=== PATIENT | male | born 1995 | race Caucasian/White ===

== ENCOUNTER 2024-12-02 19:56 | Inpatient (IN) | payer OTHER ==
[2024-12-02 20:15] VITALS: BMI 26.5
[2024-12-02] MEDS ORDERED: guaiFENesin 600 MG TABLET.ER (FP) PO PRN (20:40)
[2024-12-02] MEDS ORDERED: hydrOXYzine PAMOATE 25 MG CAPSULE (FP) PO PRN (20:40)
[2024-12-02] MEDS ORDERED: LOPERAMIDE HCL 2 MG CAPSULE PO PRN (20:40)
[2024-12-02] MEDS ORDERED: BISMUTH SUBSALICYLATE 524 MG/30 ML PO PRN (20:40)
[2024-12-02] MEDS ORDERED: BENZOCAINE/MENTHOL (CHLORASEPTIC ) LOZENGE MM PRN (20:40)
[2024-12-02] MEDS ORDERED: ACETAMINOPHEN 325 MG TABLET (FP) PO PRN (20:40)
[2024-12-02] MEDS ORDERED: DICYCLOMINE HCL 10 MG CAPSULE PO PRN (20:40)
[2024-12-02] MEDS ORDERED: BENZONATATE 200 MG CAPSULE PO PRN (20:40)
[2024-12-02] MEDS ORDERED: IBUPROFEN 400 MG TABLET (FP) PO PRN (20:40)
[2024-12-02] MEDS ORDERED: IBUPROFEN 600 MG TABLET (FP) PO PRN (20:40)
[2024-12-02] MEDS ORDERED: MAGNESIUM HYDROX 2400MG/30ML ORAL SUSPENSION 30 ML CUP PO PRN (20:40)
[2024-12-02] MEDS ORDERED: METHOCARBAMOL 500 MG TABLET PO PRN (20:40)
[2024-12-02] MEDS ORDERED: POLYETHYLENE GLYCOL (HEALTHYLAX) 3350 17 GM PACKET PO PRN (20:40)
[2024-12-02] MEDS ORDERED: MAG HYDROX/AL HYDROX/SIMETH 30 ML UNIT-DOSE CUP PO PRN (20:40)
[2024-12-02] MEDS ORDERED: NICOTINE POLACRILEX 4 MG GUM BUC PRN (20:40)
[2024-12-02] MEDS ORDERED: ONDANSETRON *ODT* 4 MG TABLET SL PRN (20:40)
[2024-12-02] MEDS ORDERED: NALOXONE (NARCAN) HCL 4 MG/0.1 ML SPRAY NS PRN (20:40)
[2024-12-03] MEDS ORDERED: MELATONIN 5 MG TABLETS ONE (01:01)
[2024-12-03] MEDS: MELATONIN 5 MG TABLETS PO SCH (01:02)
[2024-12-03] MEDS: THIAMINE 100 MG TABLET PO SCH (01:11)
[2024-12-03] MEDS ORDERED: chlordiazePOXIDE HCL 25 MG CAPSULE PO PRN (07:38)
[2024-12-03] MEDS: VENLAFAXINE HCL 150 MG E.R. CAPSULE PO SCH (10:18)
[2024-12-03] MEDS: PRENATAL VITAMINS W/ FOLIC ACID TABLET (FP) PO SCH (10:18)
[2024-12-03] MEDS: chlordiazePOXIDE HCL 25 MG CAPSULE PO SCH (10:20)
[2024-12-03 11:41] LABS: POTASSIUM 4.1 mmol/L (3.5-5.1)
[2024-12-03 11:42] LABS: HEMATOCRIT 40.6 % (40.1-51.0); HEMOGLOBIN 14.2 g/dL (13.7-17.5); MEAN CELL VOLUME 85.3 fl (79.0-92.2); MEAN PLT VOLUME 9.5 fl (9.4-12.4); PLATELET COUNT 206 x10^3/uL (163-337); RDW 11.9 % (11.9-15.3)
[2024-12-03 11:44] LABS: BLOOD UREA NITROGEN 12.8 mg/dL (7-18); CALCIUM 9.1 mg/dL (8.5-10.1)
[2024-12-03 11:47] LABS: CREATININE 0.9 mg/dL (0.55-1.3)
[2024-12-03 11:49] LABS: BILIRUBIN,TOTAL 1.1 mg/dL (0.2-1)
[2024-12-03] MEDS: SUVOREXANT 10 MG TABLET PO PRN (22:06)
[2024-12-04 08:52] VITALS: BP 115/70; PULSE 72; RESP 18; TEMP 98.6
[2024-12-05] MEDS ORDERED: chlordiazePOXIDE HCL 25 MG CAPSULE PO SCH (05:00)
[2024-12-06] MEDS ORDERED: chlordiazePOXIDE HCL 10 MG CAPSULE PO PRN
[2024-12-06] MEDS ORDERED: chlordiazePOXIDE HCL 10 MG CAPSULE PO SCH (05:00)
[2024-12-07] MEDS ORDERED: chlordiazePOXIDE HCL 10 MG CAPSULE PO SCH (05:00)
[2024-12-08] MEDS ORDERED: chlordiazePOXIDE HCL 10 MG CAPSULE PO ONE (05:00)
== END 2024-12-04 09:31 | disposition left against medical advice (07) | DRG 770 ==
LOC: YASAS 19:56 → Y6N 23:14
PROVIDERS: ADMIT Allergy & Immunology; ATTEND Allergy & Immunology
PROC: HZ2ZZZZ Detoxification Services for Substance Abuse Treatment (ICD-10-PCS; principal; 2024-12-02)
DX: F10.230 Alcohol dependence with withdrawal, uncomplicated (principal); F33.1 Major depressive disorder, recurrent, moderate; F19.282 Other psychoactive substance dependence with psychoactive substance-induced sleep disorder; F19.280 Other psychoactive substance dependence with psychoactive substance-induced anxiety disorder; F19.24 Other psychoactive substance dependence with psychoactive substance-induced mood disorder; F41.9 Anxiety disorder, unspecified; Z62.810 Personal history of physical and sexual abuse in childhood; Z63.8 Other specified problems related to primary support group; Z59.00 Homelessness unspecified; Z87.891 Personal history of nicotine dependence
CPT/HCPCS: 36415; 80053; 80305; 80307; 85027; 86780; 93005; 93010